=== PATIENT | female | born 1970 | race Caucasian/White ===

== ENCOUNTER 2018-08-07 10:49 | Outpatient (CLI) | payer OTHER | END 2018-08-07 11:13 | disposition home or self-care (01) | LOC: RAD 10:49 | DX: M25.561 Pain in right knee (principal) ==

== ENCOUNTER 2019-03-16 10:30 | Outpatient (CLI) | payer OTHER | END 2019-03-16 10:41 | disposition home or self-care (01) | LOC: RAD 10:30 | DX: N60.01 Solitary cyst of right breast (principal); N60.02 Solitary cyst of left breast; R10.13 Epigastric pain; R10.2 Pelvic and perineal pain; D25.1 Intramural leiomyoma of uterus ==

== ENCOUNTER → 2019-05-30 | Outpatient (CLI) | payer OTHER | END | disposition home or self-care (01) | LOC: RAD 11:16 | DX: R07.89 Other chest pain (principal) ==

== ENCOUNTER 2020-10-06 15:18 | Emergency (ER) | payer OTHER ==
[~2020-10-06] VITALS: Ht 167.6 cm; Wt 83.9 kg
[2020-10-06] MEDS ORDERED: PRILOSEC OTC20 MG (16:05)
[2020-10-06] MEDS ORDERED: SYNTHROID75 MCG PO (16:05)
== END 2020-10-06 22:40 | disposition home or self-care (01) ==
LOC: ER 15:18
DX: K29.60 Other gastritis without bleeding (principal); Z03.818 Encounter for observation for suspected exposure to other biological agents ruled out

== ENCOUNTER 2022-06-13 13:33 | Outpatient (CLI) | payer OTHER ==
[~2022-06-13 13:33] MED LIST: PRILOSEC OTC20 MG; SYNTHROID75 MCG PO
== END 2022-06-13 13:36 | disposition home or self-care (01) ==
LOC: MAMO-SONO 13:33
PROVIDERS: ATTEND Specialist
DX: Z12.31 Encounter for screening mammogram for malignant neoplasm of breast (principal); N60.11 Diffuse cystic mastopathy of right breast; N60.12 Diffuse cystic mastopathy of left breast; R10.2 Pelvic and perineal pain; J32.9 Chronic sinusitis, unspecified; J34.9 Unspecified disorder of nose and nasal sinuses; M26.603 Bilateral temporomandibular joint disorder, unspecified; M15.0 Primary generalized (osteo)arthritis; M48.10 Ankylosing hyperostosis [Forestier], site unspecified; R93.7 Abnormal findings on diagnostic imaging of other parts of musculoskeletal system